=== PATIENT | male | born 1990 | race Caucasian/White ===

== ENCOUNTER 2019-03-31 14:57 | Emergency (ER) | payer OTHER ==
[2019-03-31 15:11] VITALS: BP 98/62
--- NOTE | 2019-03-31 15:30 | UC ---
UC General HPI - HPI Summary HPI Summary: 28-year-old male who has 2 complaints today. The first is that he noticed a lump on his right upper abdomen and concerned he may have a hernia. The second complaint is he had some bright red blood in his stool today. He was not constipated and had really no effort in order to defecate but he noticed an approximately 1 inch long string of red blood. He denies putting anything in his rectum. Denies fever or chills. He denies abdominal pain. - History of Current Complaint Chief Complaint: UCGI Stated Complaint: POSS HERNIA Time Seen by Provider: 03/31/19 15:00 Hx Obtained From: Patient Onset/Duration: Gradual Onset - Patient noted the right upper abdomen near the base of his right lower ribs as a lump for the past 2 months. Timing: Constant Onset Severity: Mild Current Severity: Mild Pain Intensity: 0 - Allergy/Home Medications Allergies/Adverse Reactions: Allergies Allergy/AdvReac Type Severity Reaction Status Date / Time No Known Allergies Allergy Verified 03/31/19 15:11 Home Medications: Home Medications NK [No Home Medications Reported] 03/31/19 [History Confirmed 03/31/19] PMH/Surg Hx/FS Hx/Imm Hx Previously Healthy: Yes - Surgical History Surgical History: None - Family History Known Family History: Positive: Non-Contributory - Social History Lives: With Family Alcohol Use: Weekly Substance Use Type: None Smoking Status (MU): Never Smoked Tobacco Review of Systems All Other Systems Reviewed And Are Negative: Yes Constitutional: Negative: Fever, Chills Gastrointestinal: Positive: Other - Patient had a "string of blood approximate 1 inch long" this morning but stool was a normal color and it was soft, it was not constipated.. Negative: Abdominal Pain, Vomiting, Diarrhea, Nausea Musculoskeletal: Positive: Other: - Noticed a lump in his right upper abdomen/ right lower rib is been there over the past 2 months. He is concerned he may have a hernia. Is Patient Immunocompromised?: No Physical Exam Triage Information Reviewed: Yes Appearance: Well-Appearing, No Pain Distress, Well-Nourished Vital Signs: Initial Vital Signs Temp 99.0 F 03/31/19 15:07 Pulse 85 03/31/19 15:07 Resp 18 03/31/19 15:07 BP 98/62 03/31/19 15:07 Pulse Ox 98 03/31/19 15:07 Vital Signs Reviewed: Yes Eyes: Positive: Conjunctiva Clear ENT: Positive: Pharynx normal, TMs normal, Uvula midline Neck: Positive: Supple, Nontender, No Lymphadenopathy Respiratory: Positive: Chest non-tender, Lungs clear, Normal breath sounds, No respiratory distress, No accessory muscle use Cardiovascular: Positive: RRR, No Murmur, Pulses Normal, Brisk Capillary Refill Abdomen Description: Positive: Nontender, No Organomegaly, Soft. Negative: CVA Tenderness (R), CVA Tenderness (L), Distended, Guarding, Hernia @, Hepatomegaly , McBurney's Point Tenderness, Splenomegaly Bowel Sounds: Positive: Present Male Genital Exam: Positive: Other - Patient refused a rectal exam Musculoskeletal: Positive: Strength Intact, ROM Intact, No Edema, Other: - The right lower rib, where the patient points to the lump, has a hard lump which is nontender, no erythema. I am unable to move it and it feels like it is part of the rib. It is not in the soft tissue. Neurological: Positive: Alert, Muscle Tone Normal Psychological Exam: Normal Skin Exam: Normal Course/Dx - Course Course Of Treatment: Patient is comfortable here. I feel the lump is not a hernia as opposed to a growth or abnormality of his right lower mid rib. It's nontender on palpation. I don't feel like it's a skin cyst. I am unable to move it. I did offer the patient a chest x-ray however he prefers not to have that and to follow-up with his primary care provider if it worsens. The patient also refused a rectal exam. I explained to him the reasoning for doing the rectal exam because he had some blood in his stool and to test for that but the patient would prefer to follow-up with his primary care provider if he has any further blood in his stools. - Diagnoses Provider Diagnosis: Blood in stool, Lump of rib Discharge ED - Sign-Out/Discharge Documenting (check all that apply): Patient Departure All imaging exams completed and their final reports reviewed: No Studies - Discharge Plan Condition: Good Disposition: HOME Referrals: No Primary Care Phys,NOPCP [Primary Care Provider] - Cruzito Aldrich MD [Medical Doctor] - Additional Instructions: Use stool softeners as directed if constipated bowel movements. Follow-up with your primary care provider if the area on your right lower ribs becomes bigger or more painful or if you develop any fever or chills. - Billing Disposition and Condition Condition: GOOD Disposition: Home
== END 2019-03-31 15:39 | disposition home or self-care (01) ==
LOC: UCEAST 14:57 → EDSEX 14:57 → UCEAST 15:39
DX: R19.01 Right upper quadrant abdominal swelling, mass and lump (principal); K92.1 Melena
CPT/HCPCS: 99201; G0463